=== PATIENT | female | born 1995 | race Caucasian/White ===

== ENCOUNTER 2018-02-01 15:50 | Emergency (ER) | payer BC ==
[2018-02-01] MEDS ORDERED: ONDANSETRON ODT 4 MG TAB ONE (16:15)
[2018-02-01] MEDS ORDERED: ACETAMINOPHEN EXTRA STRENGTH 500 MG TABLET ONE (16:15)
[2018-02-01 16:19] LABS: BILIRUBIN,URINE Large (NEGATIVE); GLUCOSE, URINE (UA) Negative (NEGATIVE); KETONES,URINE >=160 mg/dL (NEGATIVE); LEUKOCYTE ESTERASE ,URINE Small (NEGATIVE); NITRATE,URINE Positive (NEGATIVE); OCCULT BLOOD,URINE Negative (NEGATIVE); PH,URINE 5.5 (5.0-8.0); PROTEIN,URINE POS 1+ (NEGATIVE)
[2018-02-01 16:25] LABS: COLOR,URINE ORANGE (YELLOW); HCG,QUAL RESULT NEGATIVE (NEGATIVE)
[2018-02-01 16:26] LABS: APPEARANCE,URINE SLIGHTLY CLOUDY (CLEAR)
[2018-02-01 16:44] LABS: BACTERIA,URINE Moderate /HPF (None Seen); RBC,URINE None Seen /HPF (0-1); RENAL EPITHELIAL CELLS,URINE Rare /LPF (None Seen); TRANSITIONAL EPI CELLS,URINE Few /LPF (None Seen)
[2018-02-01 16:45] LABS: SQUAMOUS EPITHELIAL CELL,UR 30-50 /LPF (0-2)
== END 2018-02-01 16:58 | disposition home or self-care (01) ==
LOC: EDH 15:50
DX: N39.0 Urinary tract infection, site not specified (principal); M79.1 Myalgia; R50.9 Fever, unspecified
CPT/HCPCS: 81001; 81025